=== PATIENT | male | born 1980 | race Caucasian/White ===

== ENCOUNTER 2021-01-07 23:40 | Emergency (ER) | payer MEDICAID ==
[~2021-01-07] VITALS: Ht 180.3 cm; Wt 77.3 kg
[~2021-01-07 23:40] MED LIST: METH-603 PO
[2021-01-07 23:50] VITALS: BP 137/80
[2021-01-08] MEDS ORDERED: CefTRIAXone 250MG IM Kit w/LIDOcaine IM ONE (00:05)
[2021-01-08] MEDS ORDERED: azithromycin 250mg tablet PO ONE (00:05)
[2021-01-08] MEDS ORDERED: penicillin G benzathine 1.2 million unit/2ml syringe IM ONE (00:05)
[2021-01-08] MEDS ORDERED: metroNIDAZOLE 500mg tablet PO ONE (00:05)
[2021-01-08] MEDS ORDERED: VALA10002 PO (01:48)
== END 2021-01-08 02:03 | disposition home or self-care (01) ==
LOC: ER 23:41
DX: Z20.2 Contact with and (suspected) exposure to infections with a predominantly sexual mode of transmission (principal); B00.9 Herpesviral infection, unspecified; Z79.2 Long term (current) use of antibiotics
CPT/HCPCS: 36415; 86592; 96372; 99284; J0561; J0696; J3490

== ENCOUNTER 2021-02-06 16:06 | Emergency (ER) | payer MEDICAID ==
[~2021-02-06] VITALS: Ht 180.3 cm; Wt 77.3 kg
[~2021-02-06 16:06] MED LIST changes: +VALA10002 PO
[2021-02-06] MEDS ORDERED: TETanus/Pertussis (Acell)/Diphther VAC/PF (Tdap-Adult) 0.5ml syringe IMVAC ONE (17:00)
[2021-02-06] MEDS ORDERED: DEXA4TAB67 PO (17:00)
[2021-02-06] MEDS ORDERED: LIDOcaine 1% W/epiNEPHrine 1:200,000 10ml vial IJ ONE (17:00)
[2021-02-06] MEDS ORDERED: cephalexin 500mg capsule PO ONE (17:00)
[2021-02-06] MEDS ORDERED: CEPH-585 PO (17:20)
[2021-02-06 18:33] VITALS: BP 121/83
== END 2021-02-06 18:35 | disposition home or self-care (01) ==
LOC: ER 16:07
DX: S61.412A Laceration without foreign body of left hand, initial encounter (principal); Z20.822 Contact with and (suspected) exposure to COVID-19; B34.9 Viral infection, unspecified; Z79.2 Long term (current) use of antibiotics; Z79.899 Other long term (current) drug therapy; W45.8XXA Other foreign body or object entering through skin, initial encounter; Y93.89 Activity, other specified; Y92.89 Other specified places as the place of occurrence of the external cause; Y99.8 Other external cause status
CPT/HCPCS: 12001; 36415; 73130; 90471; 90715; 99284; U0003